=== PATIENT | female | born 1995 | race African-American/Black ===

== ENCOUNTER 2019-02-25 09:33 | Emergency (ER) | payer BC, OTHER ==
[~2019-02-25] VITALS: Ht 167.6 cm; Wt 59.0 kg
[2019-02-25 09:47] LABS: URINE BILIRUBIN NEGATIVE (Negative); URINE BLOOD 3+ (Negative); URINE CLARITY CLEAR; URINE COLOR YELLOW; URINE GLUCOSE-RANDOM* NEGATIVE (Negative); URINE KETONES 1+ (Negative); URINE NITRITE-REFLEX NEGATIVE (Negative); URINE PROTEIN (DIPSTICK) NEGATIVE (Negative); URINE UROBILINOGEN 0.2 E.U./dl (0.2-1.0)
[2019-02-25 09:48] LABS: URINE LEUKOCYTES-REFLEX 1+ (Negative)
[2019-02-25] MEDS ORDERED: PULMICORT FLEX90 MCG (09:54)
[2019-02-25] MEDS ORDERED: PROAIR HFA8.5 GM INH (09:54)
[2019-02-25 10:00] LABS: CASTS None Seen /LPF (None Seen); SQUAMOUS >10 Many /LPF (0-3)
[2019-02-25 10:01] LABS: BACTERIA-REFLEX 1-9 Few /HPF (None Seen); CRYSTALS None Seen /LPF (None Seen); MUCUS >6 Heavy strn/LPF (None Seen); URINE RBC 0-2 Rare /HPF (0-2)
[2019-02-25 10:11] LABS: HEMATOCRIT 44.7 % (37.0-47.0); HEMOGLOBIN 14.6 gm/dL (12.0-15.0); MCH 25.7 pg (26.0-34.0); MCHC 32.7 g/dL (28.0-37.0); MCV 78.5 fL (80.0-100.0); PLATELET COUNT 240 thou/uL (150-400); RBC 5.69 mil/uL (4.20-5.00); RDW 13.1 % (10.5-14.5); WBC 2.8 thou/uL (4.0-11.0)
[2019-02-25 10:18] LABS: CALCIUM 9.4 mg/dL (8.5-10.1); CREATININE 0.9 mg/dL (0.6-1.0); POTASSIUM 3.8 mmol/L (3.5-5.1)
[2019-02-25 10:24] LABS: ALBUMIN 4.4 g/dL (3.4-5.0); TOTAL BILIRUBIN 0.5 mg/dL (<0.1-1.0); TOTAL PROTEIN 8.4 g/dL (6.4-8.2)
[2019-02-25 11:23] LABS: ABSOLUTE NEUTROPHILS 1.1 thou/uL (1.4-8.2)
[2019-02-25 11:24] LABS: ANISOCYTOSIS SLIGHT
[2019-02-25] MEDS ORDERED: KEFLEX500 M1 PO (11:47)
[2019-02-25] MEDS ORDERED: NAPROSYN500 MG PO (11:47)
[2019-02-25] MEDS ORDERED: BUTALB-APAP-CA1 EACH PO (11:47)
[2019-02-25] MEDS ORDERED: ONDANSETRON ODT8 MG PO (11:48)
[2019-02-25 11:55] VITALS: BP 123/66
== END 2019-02-25 11:55 | disposition home or self-care (01) ==
LOC: ER 09:33
PROVIDERS: Emergency Medicine
DX: G44.209 Tension-type headache, unspecified, not intractable (principal); N39.0 Urinary tract infection, site not specified; R11.2 Nausea with vomiting, unspecified; Q67.5 Congenital deformity of spine; J45.909 Unspecified asthma, uncomplicated